=== PATIENT | male | born 1995 | race Hispanic/Latino ===

== ENCOUNTER 2022-02-19 16:14 | Emergency (ER) | payer SELFPAY ==
[2022-02-19 16:16] VITALS: BP 132/81; PULSE 86; RESP 15; TEMP 36.3; O2SAT 99; BMI 25.0
--- NOTE | 2022-02-19 17:09 | EX.ED.DYSGE1 ---
HPI History of Present Illness Chief Complaint: Allergic Reaction Informant: patient Narrative Narrative: Patient is a 26-year-old male that denies any significant past medical history presenting with allergic reaction. 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 He had localized swelling and rash. Today he was again stung by wasp and on his right index finger. He again has associated swelling and rash. Because of the degree of swelling he was taken to the emergency room for further evaluation. Localized wound care and Neosporin cream applied to the hand. Patient notes he did have an episode of vomiting this morning. He currently denies any nausea, abdominal pain, vomiting, diarrhea, throat, mouth or lip swelling. Denies associated shortness of breath or difficulty breathing. Denies any new medications. No other complaints at this time [facility] Medical History no medical history Home Medications diphenhydramine HCl 25 mg capsule (Benadryl) 50 mg PO Q6H PRN allergy symptoms #20 caps 02/19/22 [Rx Last Taken Unknown] prednisone 20 mg tablet 40 mg PO DAILY #8 tabs 02/19/22 [Rx Last Taken Unknown] Allergy/AdvReac Type Severity Reaction Status Date / Time bee venom protein (honey bee) AdvReac Swelling Verified 02/19/22 16:19 Social History Smoking Status: Current every day smoker tobacco type: cigarettes ROS ROS ED Constitutional Constitutional ED: Denies chills, fever(s) or sweats Eyes Eyes: Denies change in vision ENT ENT ED: Denies rhinorrhea or sore throat Cardiovascular Cardiovascular: Denies chest pain Respiratory/Chest Respiratory/Chest: Denies cough or dyspnea Gastrointestinal Gastrointestinal: Reports vomiting; Denies abdominal pain, diarrhea or nausea Musculoskeletal Musculoskeletal: Denies arthralgias or myalgias Integumentary Reports rash Neurologic Neurologic: Denies headache(s), paresthesias or weakness Psychiatric Psychiatric: Denies anxiety EXAM Physical Exam Const Vital Signs: 02/19/22 16:16 Temperature 97.3 F L Temperature Source Temporal Pulse Rate 86 Respiratory Rate 15 Blood Pressure 132/81 H Blood Pressure Mean 98 Pulse Ox 99 Oxygen Delivery Method Room Air Positive well nourished and well developed General Appearance ED: well developed and NAD HEENT Reports moist mucous membranes HEENT Narrative: No facial swelling. Normal oropharynx with normal uvula that is midline. Eyes PERRL and EOMs intact bilaterally Neck supple and no JVD Neck Narrative: No stridor Resp normal respiratory effort and clear to auscultation bilaterally Auscultation: Negative for wheezes Cardio regular rate, regular rhythm and no murmurs GI normal to inspection, nondistended, normoactive bowel sounds Extremity Extremity Narrative: Soft tissue swelling noted of the right index finger extending into the hand as well as the left forearm. No bony tenderness. Compartments are soft. General Extremety ED: Yes edema; Negative for tenderness General Extremity: edema Neuro oriented x3 and no sensory deficits noted Motor Exam: Negative for general weakness Psych mental status grossly normal Skin Skin Narrative: 2 small pinpoint areas of what appear to be Wasp stings with no retained stingers, 1 along the right index finger and the other along the left forearm. There is surrounding erythema and warmth. No associated lymphangitic streaking. MDM MDM MDM Narrative Medical decision making narrative: Patient's evaluated after 2 wasp stings within the last 24 hours. He has localized allergic reaction. No signs of anaphylaxis. Is hemodynamically stable. Will be treated with Benadryl as well as prednisone. Given prescription for both of these. Counseled on return precautions. Counseled to avoid wasp. No other complaints at this time. Discharge Plan Triage Chief Complaint: Allergic Reaction ED Provider: Guadalupe Alvares Dx/Rx/DC Orders Clinical Impression: Accidental wasp sting, Localized swelling on right hand, Left arm swelling Instructions: ED Insect Sting, Local Reaction Prescriptions: New prednisone 20 mg tablet 40 mg PO DAILY Qty: 8 0RF diphenhydramine HCl [Benadryl] 25 mg capsule 50 mg PO Q6H PRN (Reason: allergy symptoms) Qty: 20 0RF Primary Care Provider: Care Physician,No Primary Referrals: Care Physician,No Primary [Primary Care Provider] - Disposition Disposition: Home, Self Care
[2022-02-19] MEDS: DiphenhydrAMINE 25 MG Capsule 50 MG PO (17:16)
[2022-02-19] MEDS: predniSONE 20 MG Tablet 60 MG PO (17:16)
[2022-02-19 17:19] VITALS: PULSE 63; RESP 16; O2SAT 95
== END 2022-02-19 17:24 | disposition home or self-care (01) ==
PROVIDERS: Emergency Provider Emergency Medicine; Visit Provider Emergency Medicine
DX: T63.461A Toxic effect of venom of wasps, accidental (unintentional), initial encounter (principal); M79.89 Other specified soft tissue disorders; F17.210 Nicotine dependence, cigarettes, uncomplicated
CPT/HCPCS: 99283